=== PATIENT | female | born 1945 | race Caucasian/White ===

== ENCOUNTER 2021-09-21 21:01 | Emergency (ER) | payer MEDICARE, MEDICAID, SELFPAY ==
[2021-09-21 21:02] VITALS: BP 118/67; PULSE 89; RESP 14; TEMP 36.3; O2SAT 92; BMI 29.0
--- NOTE | 2021-09-21 21:10 | EKG12_ITS ---
Test Reason : Blood Pressure : / mmHG Vent. Rate : 072 BPM Atrial Rate : 072 BPM P-R Int : 130 ms QRS Dur : 088 ms QT Int : 392 ms P-R-T Axes : -07 -14 010 degrees QTc Int : 429 ms Normal sinus rhythm Voltage criteria for left ventricular hypertrophy Nonspecific T wave abnormality Abnormal ECG Confirmed by ROGER PÉREZ, SYD ([id number]), assignment editor JEAN PASTOR ([id number]) on 09/23/2021 8:56:49 AM Referred By: TUAN Confirmed By:SYD DURAN MD
--- NOTE | 2021-09-21 21:10 | CT_ITS ---
STUDY: CT BRAIN WITHOUT CONTRAST REASON FOR EXAM: Female, 76 years old. agitation RADIATION DOSAGE (If Supplied By Facility): CTDIvol = ( 44.99 ) mGy, DLP = ( 846.73 ) mGycm TECHNIQUE: Transaxial CT imaging of the brain was performed without administration of intravenous contrast material. Individualized dose optimization techniques were used for this CT. COMPARISON: No relevant priors. FINDINGS: Normal soft tissue structures. Normal calvarium. There is moderate cerebral atrophy with widening of the extra-axial spaces and ventricular dilatation. There are areas of decreased attenuation within the white matter tracts of the supratentorial brain, consistent with microvascular disease changes. Normal basal ganglia and thalami. Normal brainstem. Normal cerebellum. There is no intracranial hemorrhage. There are no findings of an acute ischemic infarction. Normal visualized paranasal sinuses. CT/Brain/Head without Contrast IMPRESSION: Chronic involutional changes of the brain. Electronically Signed: Ghanshyam Solano DO at 22:31 EST ,
--- NOTE | 2021-09-21 21:11 | EDS_ITS ---
HPI HPI - Psych History of Present Illness Chief Complaint: Mental Health Detail of Chief Complaint: Agitation Informant: SNF and other Narrative Narrative: Patient brought to the emergency department from extended-care facility via EMS for complaint of agitation. Patient at a residential currently and is on hospice. She has had increased agitation and acting out. Family wants to revoke hospice and have patient evaluated for [facility] psych admission. Patient has history of dementia and cannot really give any history. No recent illness known. Apparently she had a urinalysis a week ago that was unremarkable. [facility] Medical History (Updated 09/21/21 @ 23:[address] Tia Russ, DO) Alzheimer's dementia with behavioral disturbance Anxiety CAD (coronary artery disease) Dementia Hyperlipemia Hypothyroid Vitamin D deficiency Home Medications alprazolam [Xanax] 0.25 mg PO TID 09/21/21 [History Last Taken Unknown] alprazolam [Xanax] 0.25 mg PO TID PRN 09/21/21 [History Last Taken Unknown] ciprofloxacin HCl 250 mg PO BID 09/21/21 [History Last Taken Unknown] lorazepam [Ativan] 1 mg PO Q4H PRN PRN 09/21/21 [History Last Taken Unknown] lorazepam [Ativan] 1 mg PO TID 09/21/21 [History Last Taken Unknown] oxycodone 5 mg PO Q4H PRN 09/21/21 [History Last Taken Unknown] oxycodone 5 mg PO TID 09/21/21 [History Last Taken Unknown] quetiapine [Seroquel] 100 mg PO TID 09/21/21 [History Last Taken Unknown] sertraline 100 mg PO DAILY 09/21/21 [History Last Taken Unknown] trazodone 100 mg PO QHS 09/21/21 [History Last Taken Unknown] Allergy/AdvReac Type Severity Reaction Status Date / Time benzonatate Allergy PT UNSURE Verified 09/21/21 21:05 [From Latoya Puente] OF REACTION Social History Smoking Status: Unknown if ever smoked ROS ROS ED Review of Systems ROS Unobtainable: due to encephalopathy, due to endotracheal tube, due to mental condition, due to mental status and other EXAM Physical Exam Const Vital Signs: 09/21/21 21:02 09/21/21 22:23 09/21/21 23:07 Temperature 97.4 F L Temperature Source Temporal Pulse Rate 89 95 72 Respiratory Rate 14 17 17 Blood Pressure 118/67 132/61 H Blood Pressure Mean 84 84 Pulse Ox 92 97 77 Oxygen Delivery Method Room Air Room Air Room Air Oxygen Flow Rate (L/min) 09/21/21 23:08 09/21/21 23:12 Temperature Temperature Source Pulse Rate 70 Respiratory Rate 19 H Blood Pressure 105/78 110/50 L Blood Pressure Mean 87 70 Pulse Ox 97 98 Oxygen Delivery Method Nasal Cannula Nasal Cannula Oxygen Flow Rate (L/min) 2 2 Positive well nourished and well developed General Appearance ED: well developed and NAD HEENT Reports TM's clear and moist mucous membranes normocephalic and atraumatic; Negative for trauma or tenderness Tympanic Membrane ED: Yes TM's clear Eyes PERRL and EOMs intact bilaterally General Eye ED: Negative for pale conjunctiva or scleral icterus Neck no lymphadenopathy, supple and no JVD General: Negative for tenderness Chest Wall inspection of chest normal and palpation of chest normal Chest: Negative for tenderness Resp normal respiratory effort and clear to auscultation bilaterally Effort and Inspection: Negative for respiratory distress or pain with movement Auscultation: Negative for rhonchi, wheezes or diminished lung sounds Cardio regular rate, regular rhythm, S1 normal heart sound, S2 normal heart sound and no murmurs Peripheral Pulses: pulses 2+ throughout GI normal to inspection, nondistended, normoactive bowel sounds, soft to palpation, non-tender, non-distended and no masses Back/Spine no CVA tenderness and no thoracic nor lumbar tenderness Extremity normal to inspection General Extremety ED: Negative for edema General Extremity: Negative for edema Neuro oriented x3, CN's II-XII intact bilaterally, no sensory deficits noted and gait normal Sensorium / Orientation: awake, alert, oriented to person, oriented to place and oriented to time Motor Exam: strength 5/5 throughout and strength abnormal Psych mental status grossly normal Skin no rashes or lesions noted and no wounds MDM MDM MDM Narrative Medical decision making narrative: Patient was quite agitated and received Geodon total of 20 mg IM as well as Ativan 1 mg IM. Patient continued to be agitated despite this and was given Haldol 2 mg IV. Urinalysis pending. Care of patient turned over to evening physician awaiting evaluation by crisis for possible placement to [facility] facility Lab Data Attestation: I reviewed the patient's lab results. Labs: Laboratory Results - last 24 hr 09/21/21 09/21/21 21:30 21:30 WBC 10.5 RBC 5.27 Hgb 15.3 H Hct 45.9 MCV 87.1 MCH 29.0 MCHC 33.3 RDW Std Deviation 45.5 H RDW Coeff of Ravin 14.2 Plt Count 190 MPV 10.8 Immature Gran % (Auto) 0.400 Neut % (Auto) 74.2 H Lymph % (Auto) 13.0 L [place] % (Auto) 11.4 H Eos % (Auto) 0.5 Baso % (Auto) 0.5 Absolute Neuts (auto) 7.8 H Absolute Lymphs (auto) 1.36 Nucleated RBC % 0 Sodium 145 Potassium 4.5 Chloride 111 H Carbon Dioxide 27.0 Anion Gap 7 BUN 27 H Creatinine 1.03 H Estim Creat Clear Calc 39.04 Est GFR (MDRD) Af Amer 67 Est GFR (MDRD) Non-Af 55 L BUN/Creatinine Ratio 26.2 H Glucose 110 H Calcium 9.9 Total Bilirubin 1.00 AST 86 H ALT 39 Alkaline Phosphatase 41 L Troponin I High Sens 15 Total Protein 7.3 Albumin 3.4 Globulin 3.9 Albumin/Globulin Ratio 0.9 Radiography Diagnostic Testing: Clinical Impression(s) from Imaging Studies Brain CT 09/21/21 21:10 IMPRESSION: Chronic involutional changes of the brain. Electronically Signed: Ghanshyam DO Russ at 22:31 EST Reading Location ID and State: [facility] [place] / [place] Tel , Service support , EKG Initial EKG: Attestation: I personally reviewed and interpreted this EKG as follows: Comments: Sign rhythm with a ventricular rate of [address] changes Discharge Plan Triage Chief Complaint: Mental Health ED Provider: Tia Russ Dx/Rx/DC Orders Clinical Impression: Agitation, Dementia Prescriptions: No Action sertraline 100 mg Tablet 100 mg PO DAILY RF: 0 ciprofloxacin HCl 250 mg Tablet 250 mg PO BID RF: 0 quetiapine [Seroquel] 100 mg Tablet 100 mg PO TID RF: 0 alprazolam [Xanax] 0.25 mg Tablet 0.25 mg PO TID PRN (Reason: Anxiety) RF: 0 alprazolam [Xanax] 0.25 mg Tablet 0.25 mg PO TID RF: 0 trazodone 100 mg Tablet 100 mg PO QHS RF: 0 lorazepam [Ativan] 1 mg Tablet 1 mg PO Q4H PRN PRN (Reason: Psychosis) RF: 0 lorazepam [Ativan] 1 mg Tablet 1 mg PO TID RF: 0 oxycodone 5 mg Tablet 5 mg PO Q4H PRN (Reason: Anxiety) RF: 0 oxycodone 5 mg Tablet 5 mg PO TID RF: 0 Primary Care Provider: Stevan Jane Referrals: Stevan Jane MD [Primary Care Provider] - Disposition Disposition: Psychiatric Hospital or Unit
[2021-09-21] MEDS: 0.9% Normal Saline 1,000 ML 999 ML IV (21:31)
[2021-09-21 21:33] LABS: Absolute Lymphocyte Count 1.36 X10^3/uL (0.83-4.51); Absolute Neutrophil Count 7.8 X10^3/uL (2.0-7.7); Basophil# 0.05 X10^3/uL; Basophil% 0.5 % (0-1); Eosinophil# 0.05 X10^3/uL; Eosinophils% 0.5 % (0-5); Hematocrit 45.9 % (37-47); Hemoglobin 15.3 g/dL (12.0-15.0); Lymphocyte # 1.36 X10^3/ul (0.83-4.51); Mean Corp Hgb Conc 33.3 g/dL (32-36); Mean Corpuscular Volume 87.1 fL (81-99); Mean Platelet Vol. 10.8 fl (6.2-12.0); Monocyte% 11.4 % (0-10); NRBC Flagged by Analyzer 0 % (0-5); Neutrophil # 7.79 X10^3/uL (2.7-7.7); Neutrophil % 74.2 % (47-70); Platelet Count 190 K/mm3 (150-450); RBC Distribution Width CV 14.2 % (11.6-14.6); RBC Distribution Width SD 45.5 fl (35.1-43.9); Red Blood Count 5.27 M/mm3 (4.2-5.4); White Blood Count 10.5 K/mm3 (4.4-11.0)
[2021-09-21] MEDS: Ziprasidone IM 20 MG/ML VIAL 10 MG IM ×2 (21:54→22:22)
[2021-09-21] MEDS: LORazepam 2 MG/ML Syringe 1 MG IM (21:54)
[2021-09-21 22:15] LABS: ALB/GLOB Ratio 0.9 RATIO (0.9-2.4); AST(SGOT) 86 U/L (15-37); Alanine Aminotransfer ALT/SGPT 39 U/L (13-56); Albumin, Serum 3.4 g/dL (3.2-5.0); Alkaline Phosphatase 41 U/L (45-117); Anion Gap 7 (5-15); BUN 27 mg/dL (7-18); BUN/Creat Ratio 26.2 RATIO (10-20); Calcium,Total 9.9 mg/dL (8.5-10.1); Chloride 111 mmol/L (98-107); Creatinine, Serum 1.03 mg/dL (0.55-1.02); EST Glomerular Filtration Rate 55 mL/min (>60); Est Glom Filt Rate - Afr Amer 67 mL/min (>60); Estimated Creatinine Clearance 39.04 ml/min; Globulin 3.9 g/dL (2.2-4.2); Glucose 110 mg/dL (74-106); Potassium 4.5 mmol/L (3.5-5.1); Protein, Total 7.3 g/dL (6.4-8.2); Sodium Level 145 mmol/L (136-145); Troponin-I HS 15 pg/mL (3.0-54.0)
--- NOTE | 2021-09-21 22:20 | CM.ED ---
ZOE called Adriane at Crisis and advised her that patient is in the ED but not medically cleared. Adriane said to call when patient is medically cleared. RN updated Angely SIMS
[2021-09-21 22:23] VITALS: BP 132/61; PULSE 95; RESP 17; O2SAT 97
[2021-09-21 23:07] VITALS: PULSE 72; RESP 17; O2SAT 77
[2021-09-21 23:08] VITALS: BP 105/78; O2SAT 97
[2021-09-21] MEDS: Haloperidol Lactate 5 MG/ML Vial 2 MG IV (23:11)
[2021-09-21 23:12] VITALS: BP 110/50; PULSE 70; RESP 19; O2SAT 98
[2021-09-22] VITALS (12 sets, daily range): BP systolic 97–145; BP diastolic 49–112; PULSE 65–92; RESP 15–24; TEMP 36.8; O2SAT 98–100
[2021-09-22 00:18] LABS: Squamous Epithelial Cells - UA 0 SEEN /hpf (5-10)
[2021-09-22 00:23] LABS: Color, Urine Yellow (Yellow); Glucose, Dipstick Normal (Normal); Ketone-Dipstick 50 mg/dl (Negative); Leukocyte Esterase-Dipstick 100 /ul (Negative); Nitrite-Dipstick Negative (Negative); Occult Blood-Urine 50 /ul (Negative); Protein-Dipstick 30 mg/dl (Negative); Specific Gravity, Urine 1.025 (1.002-1.030); Urine Clarity Clear (Clear); Urine Urobilinogen 4 mg/dl (Normal)
[2021-09-22 00:29] LABS: Urine Bilirubin Dipstick 3 mg/dL (Negative)
[2021-09-22 00:48] LABS: Bacteria 2+ /hpf (None Seen); Mucous, Urine 1+ /hpf (<or=2+); Red Blood Cells-Urine 5-10 SEEN /hpf (0-5); White Blood Cells 10-25 SEEN /hpf (0-5)
--- NOTE | 2021-09-22 01:03 | NURSING ---
CALLED [facility] AND FAXED NOTES
[2021-09-22] MEDS: Ceftriaxone 1 GM/50 ML BAG IV (01:22)
--- NOTE | 2021-09-22 03:00 | ED.RN ---
Talked with generations and the paperwork and ua have been faxed over per Nya
[2021-09-22] MEDS: Haloperidol Lactate 5 MG/ML Vial 2 MG IV (08:38)
--- NOTE | 2021-09-22 08:45 | ED.RN ---
PT BEGINS TO STIR AND BE RESTLESS IN THE BED. THIS RN AND RYANNE RN AT BEDSIDE. PERICARE PROVIDED AND ADULT BRIEF CHANGED. PT MOVED UP IN BED. PLACED IN A POSITION OF COMFORT AND LIGHTING ADJUSTED TO CREATE A CALM ENVIRONMENT. PT OFFERED FOOD AND FLUID. PT TAKES SMALL SIPS OF JUICE. THIS RN UNABLE TO GET PT TO EAT FOOD.
[2021-09-22] MEDS: LORazepam 2 MG/ML Syringe 1 MG IV (08:53)
[2021-09-22] MEDS: Ziprasidone IM 20 MG/ML VIAL 10 MG IM (09:25)
--- NOTE | 2021-09-22 09:28 | ED.RN ---
PT CONTINUES TO SCREAM OUT. DR. NORMAN.
--- NOTE | 2021-09-22 09:46 | NURSING ---
CALLED [facility], ETA IS 2 HRS
== END 2021-09-22 11:07 ==
PROVIDERS: Emergency Provider Emergency Medicine; PCP Family Medicine; Visit Provider Emergency Medicine
DX: G30.9 Alzheimer's disease, unspecified (principal); F02.81 Dementia in other diseases classified elsewhere, unspecified severity, with behavioral disturbance; N39.0 Urinary tract infection, site not specified; I25.10 Atherosclerotic heart disease of native coronary artery without angina pectoris; E78.5 Hyperlipidemia, unspecified; E03.9 Hypothyroidism, unspecified; F41.9 Anxiety disorder, unspecified; Z79.899 Other long term (current) drug therapy
CPT/HCPCS: 70450; 80053; 81001; 84484; 85025; 87086; 87426; 93005; 96361; 96365; 96366; 96372; 96375; 96376; 99285; J7030; A4216; J3486